=== PATIENT | male | born 1940 | race Caucasian/White ===

== ENCOUNTER → 2016-08-06 | Outpatient (CLI) | payer OTHER, MEDICARE ==
[~2016-08-06] MED LIST: ADVAIR 250-501 EACH INH; ADVAIR HFA 230M12 GM INH; AZITHROMYCIN 2250 MG PO; BREO ELLIPTA 21 EACH IH; CEFACLOR500 MG PO; CELEXA20 MG PO; DUONEB 2.5-0.5 M3 ML INH; ENOXAPARIN40 MG/0.1 SUBQ; HUMALOG100 UNIT/1 SUBQ; HYDROCODONE-APA1 TA1 PO; IRON325 PO; LANTUS SUBQ; LANTUS100 UNIT/M SUBQ; LEXAPRO 10 MG T10 M1 PO; LIPITOR10 MG PO; MIDODRINE HCL2.5 M1 PO; NOVOLIN N100 UNIT/1; NOVOLIN R100 UNIT/1; NOVOLOG FL100 UNIT/M SC; NOVOLOG100 UNIT/1 SUBQ; SIMVASTATIN40 MG PO; TYLENOL325 MG PO; [UNRECOGNIZED DRUG - OTHER] PO
== END ==
LOC: CAT 10:34
DX: J44.9 Chronic obstructive pulmonary disease, unspecified (principal); J84.10 Pulmonary fibrosis, unspecified; R91.1 Solitary pulmonary nodule

== ENCOUNTER → 2019-04-09 | Outpatient (CLI) | payer OTHER, MEDICARE | LOC: CAT 10:17 | DX: J43.9 Emphysema, unspecified (principal); K80.80 Other cholelithiasis without obstruction; I25.10 Atherosclerotic heart disease of native coronary artery without angina pectoris; R91.1 Solitary pulmonary nodule ==

== ENCOUNTER 2019-05-13 13:27 | Inpatient (IN) | payer OTHER, MEDICARE ==
[~2019-05-13] VITALS: Ht 185.4 cm; Wt 81.6 kg
[2019-05-13 13:28] VITALS: BP 103/66
[2019-05-13 13:59] LABS: ABSOLUTE NEUTROPHILS 9.4 thou/uL (1.4-8.2); BASOPHILS 0.9 % (0.0-2.0); EOSINOPHILS 2.7 % (0.0-3.0); HEMATOCRIT 38.6 % (42.0-52.0); HEMOGLOBIN 12.7 gm/dL (14.0-18.0); MCH 30.4 pg (26.0-34.0); MCHC 32.9 g/dL (28.0-37.0); MCV 92.3 fL (80.0-100.0); MONOCYTES 5.8 % (1.0-8.0); POLYS 72.6 % (36.0-66.0); RBC 4.18 mil/uL (4.50-6.00); RDW 13.9 % (10.5-14.5)
[2019-05-13 14:16] LABS: CALCIUM 8.8 mg/dL (8.5-10.1); CREATININE 0.8 mg/dL (0.7-1.3); POTASSIUM 4.1 mmol/L (3.5-5.1)
[2019-05-13 14:22] LABS: DIRECT BILIRUBIN 0.6 mg/dL (<0.1-0.2); TOTAL BILIRUBIN 1.1 mg/dL (<0.1-1.0); TOTAL PROTEIN 7.1 g/dL (6.4-8.2)
[2019-05-13 14:40] LABS: PLATELET COUNT 290 thou/uL (150-400)
[2019-05-13 14:57] LABS: URINE BILIRUBIN NEGATIVE (Negative); URINE BLOOD 3+ (Negative); URINE CLARITY CLEAR; URINE COLOR YELLOW; URINE GLUCOSE-RANDOM* TRACE (Negative); URINE KETONES NEGATIVE (Negative); URINE LEUKOCYTES-REFLEX NEGATIVE (Negative); URINE NITRITE-REFLEX NEGATIVE (Negative); URINE PROTEIN (DIPSTICK) TRACE (Negative); URINE SPECIFIC GRAVITY 1.025 (1.005-1.035)
[2019-05-13 15:00] LABS: D-DIMER 3.82 ug/mLFEU (0.19-0.50); INR 1.1; PROTIME 11.4 Seconds (9.3-11.4)
[2019-05-13 15:09] LABS: BACTERIA-REFLEX 1-9 Few /HPF (None Seen); SQUAMOUS None Seen /LPF (0-3); URINE RBC 3-10 Few /HPF (0-2); URINE WBC-REFLEX 0-5 Rare /HPF (0-5)
[2019-05-13 15:10] LABS: AMORPHOUS URATES Few /LPF (None Seen); CASTS None Seen /LPF (None Seen)
--- NOTE | 2019-05-13 16:43 | EKG ---
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: LESLIE : 1940 Requested By: Ana Velazco Order Number: [id number] MD: Mook Merino Measurements Intervals [place] Rate: 111 P: 77 TN: 162 QRS: 58 QRSD: 93 T: 6 QT: 359 QTc: 488 Interpretive Statements Sinus tachycardia Low voltage, extremity leads Borderline prolonged QT interval Compared to ECG 06/07/2016 23:07:48 No significant change was found Electronically Signed On 05-13-2019 16:42:30 HEAD HOST/HOSTESS by Mook Merino [email or web address] <ELECTRONICALLY SIGNED> By: Mook Merino MD, FAC 05/13/19 1642 1343 1343 Mook Merino MD, [facility] /EPI
--- NOTE | 2019-05-13 19:10 | NUR ---
REPORT GIVEN TO JAMES ZHAO
[2019-05-13 19:43] VITALS: BP 127/77
[2019-05-13] MEDS ORDERED: LANTUS SUBQ (19:48)
[2019-05-13 19:51] VITALS: BP 141/84
[2019-05-13 20:24] VITALS: BP 129/81
--- NOTE | 2019-05-14 04:46 | NUR ---
Pt admitted from ED @1999 via cartr accompanied by staff. Pt is alert to self,place,situation able to make needs known. Very hard of hearing,has no hearing aids. Oriented to the unit/room. Tiff contacted for admission assessment and indicated pt needs assistance with all ADLs for the last 4 years. And normally ambulates with a GB/RW at home with moderate assist. Pt transferred from cart via sliding device d/t back pain. Tylenol ordered for pt and he did verbalize relief. Pt is NPO for possible IR intervention,oral swabs provided PRN. Voiding per urinal;but per pt can be incontinent as well. SCDS applied. Uses oxygen at night at 2L/NC. Fall precautions in place. Resting quietly at this time w/o any distress noted. Will continue to monitor pt.
[2019-05-14 07:20] VITALS: BP 140/85
[2019-05-14 15:18] VITALS: BP 148/81
[2019-05-14 16:29] VITALS: BP 148/81
--- NOTE | 2019-05-14 17:10 | NUR ---
INITIAL ASSESSMENT: Received consult. SW reviewed chart and spoke with nursing and attending physician. Pt was admitted from home due to weakness/pneumonia/possible malignancy. Pt with hx of dementia. Attending physician discussed possible hospice eval. ALAYNA met with pt and at bedside. Introduced role of SW. Pt is alert to self. Pt and spouse live at home. Prior to admission, pt was using a walker. Pt has a w/c at home. Pt and have sons in the area, who are able to assist as needed. Pt has been to [facility] and [facility] in the past. Pt's states that her mother was on service with hospice in the past and she is familiar with hospice. Pt's states she would like an info visit, but does not think pt is ready for hospice yet. Video swallow to be done tomorrow. SW contacted maori liaison adviser, who will contact pt's to arrange info visit tomorrow. ALAYNA updated nursing and attending physician. ALAYNA is following to assist as needed with discharge planning.
[2019-05-14 21:35] VITALS: BP 144/94
--- NOTE | 2019-05-15 07:00 | NUR ---
Assumed pt care at 1900. Pt is A/OX3 but able to make needs known. GRINDSTONE w/o hearing aids. Pt VSS. called at beginning of shift and stated he had discussed with pt's regarding his condition and opted for pt to be a DNR with possible palliative care; he did order comfort meds for pts. Pt c/o back pain;medicated with morphine with relief reported. Pt became agigated and cursing at staff this morning asking for his car keys; not easily redictable medicated with Ativan and resting calmly at this time. IVF infusing via LFA w/o any problems voiced. Fall precautions in place,calls approp. Will continue to monitor pt.
[2019-05-15 08:00] VITALS: BP 156/84
--- NOTE | 2019-05-15 09:51 | NUR ---
ALAYNA notified by Hospice that info visit will be completed this afternoon around 1300. ALAYNA updated nursing and attending physician. ALAYNA is following to assist as needed with discharge planning.
--- NOTE | 2019-05-15 16:10 | NUR ---
ASSUMED CARE OF THE PATIENT AT 0715, PATIENT ALERT AND ORIENTED X 4. UP WITH ASSIST X 1. DURING REPORT, LEFT IV INFILTRATED, ASKED NIGHTNURSE/RAJESH/LICENSING SERVICES CLERK TO REMOVE THE IV., INCIDENT REPORT PUT IN PER RAJESH/LICENSING SERVICES CLERK, NURSE QUALITY CONTROL CHECKER/JOSE DANIEL NOTIFIED. IV TEAM NOTIFIED TO OBTAIN NEW IV, RIGHT FOREARM WITH NS AT 80CC/HR. DR WRIGHT HERE THIS AM, WILL DISCHARGE PATIENT TO HOME WITH SELF CARE. RIGHT FOREARM IV REMOVED PRIOR TO DISCHARGE. ALL DISCHARGE PAPERWORK AND ALL PERSONAL BELONGINGS SENT WITH THE PATIENT.
--- NOTE | 2019-05-15 16:55 | NUR ---
ASSUMED CARE OF PATIENT AT 0715, PATIENT ALERT AND ORIENTED X 3, UP WITH MAX ASSIST X 2. PATIENT UP TO THE CHAIR TODAY PER NURSING. PATIENT WENT DOWN FOR VIDEO SWALLOW, PER SPECCH/BRYANT FLUIDS CHANGED TO HONEY THICK LIQUIDS. C/O PAIN WITH BACK AREA THIS AFTERNOON, TYLENOL 650MG GIVEN FOR PAIN. O2 AT 2 LITERS/NC IN PLACE, SOB WITH ACTIVITY. LEFT FOREARM IV WITH 1/2 NS AT 100CC/HR. AT BEDSIDE MOST OF THE DAY. HOSPICE HERE TODAY FOR EVAL. POSSIBLE MALIGNANCY. WILL CONTINUE TO MONITOR.
[2019-05-15 19:24] VITALS: BP 120/81
--- NOTE | 2019-05-16 03:45 | NUR ---
PATIENT ALERT AND ORIENTED X3. VERY [place]. COOPERATIVE WITH CARE. IVF INFUSING W/O COMPLICATION. BS MONITORED PER ORDER. VOIDING PER URINAL. 02 PER NC AT 2L WITH NO SOA NOTED. REMAINED IN BED THROUGHOUT THE NIGHT. DENIES PAIN. RESTING QUIETLY.
[2019-05-16 07:40] VITALS: BP 149/93
[2019-05-16 15:50] VITALS: BP 141/88
--- NOTE | 2019-05-16 19:30 | NUR ---
ASSUMED CARE OF PATIENT AT 0715, PATIENT ALERT AND ORIENTED X 3. PATIENT C/O PAIN WITH BACK AREA, TYLENOL 650 MG PO GIVEN WITH GOOD RELIEF. 1/2 NS AT 100CC/HR. RECEIVED 1 IV ANTIBIOTIC THIS SHIFT. O2 AT 2 LITERS/NC, SOB WITH ACTIVITY. TANESHA/PT WORKED WITH THE PATIENT, UP TO THE RECLINER. FEEDER/HONEY THICK LIQUIDS. BLOOD SUGAR ELEVATED THIS SHIFT, AT LUNCH 412, THIS RN NOTIFIED DR MAZARIEGOS, NEW ORDERS FOR CHANGE IN S/S INSULIN. AND CHANGE IN LANTUS ORDER AT HS. WILL CONTINUE TO MONITOR.
[2019-05-16 20:06] VITALS: BP 152/71
--- NOTE | 2019-05-17 04:24 | NUR ---
PATIENT ALERT AND ORIENTED X3. IVF INFUSING W/O COMPLICATION. BS MONITORED PER ORDER. 2LNC THAT PATIENT TAKES OFF AND ON. GOOD RESULTS FROM MAG CITRATE GIVEN ON THE AM SHIFT. TWO LARGE, BROWN, LIQUID BM'S AT TIME OF NOTE. RESTING QUIETLY. WILL MONITOR.
[2019-05-17 07:11] VITALS: BP 141/77
--- NOTE | 2019-05-17 13:32 | NUR ---
ASSESSED AT START OF SHIFT PT A&OX3 MARY'S IGLOO W/O HEARING AIDS. IV INTACT AND FLUIDS INFUIDS. BED BATH GIVEN THIS MORNING. PT HAD 1 BM. PT CLEANED AND TRANSFERRED TO CHAIR. 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 PT JIAN BREAKFAST AND LUNCH WELL. TAKES PILLS WITH THICK LIQUIDS. DR MAZARIEGOS MET WITH PT THIS MORNING STATED PT SHOULD BE READY FOR D/C TOMORROW. INFORMED THAT PER REPORT FROM HOSPICE AND SON WILL BE AVAILABLE BY SATURDAY. DR MAZARIEGOS STATED TO PASS MESSAGE ON TO DAY NURSE AND ASSISTANT UNIT FORESTER TOMORROW AND HE WILL FF UP WITH THAT. GETS SCHEDULED BX. INSULIN GIVEN FOR BLOOD SUGAR MANAGEMENT. FALL PREC IN PLACE AND CALL LIGHT IN REACH WILL CONT TO MONITOR. CAME BY TO VISIT WITH PT THIS SHIFT STATED HIS ROOM IN THE HOUSE IS NOT YET READY AND SON IS COMING BY ON SATURDAY TO HELP SETTLE IN.
[2019-05-17 14:56] VITALS: BP 144/85
--- NOTE | 2019-05-17 19:05 | NUR ---
ASSUMED PT CARE AROUND 1500. AXOX3. VSS. NO S/S ACUTE DISTRESS NOTED OR REPORTED AT THIS TIME. CARE TRANSFERRED TO INCOMING RN AT THIS TIME.
[2019-05-17 19:22] VITALS: BP 144/88
--- NOTE | 2019-05-18 04:51 | NUR ---
PATIENT ALERT AND ORIENTED X2-3. COOPERATIVE WITH CARE. BS MONITORED PER ORDER. 2LNC IN PLACE WITH NO SOA NOTED. VOIDING PER URINAL WITH SOME INCONTINENCE. TOLERATING HONEY THICK LIQUIDS. RESTLESS AT TIMES, UNABLE TO USE THE CALL LIGHT AT TIMES. WILL MONITOR.
[2019-05-18 07:57] VITALS: BP 157/99
--- NOTE | 2019-05-18 13:07 | PATH ---
[facility] [place] [address] PATHOLOGY RPT PROCEDURE Name: TIMI HERNANDEZ Room #: 404-P ADM IN M.R.#: [id number] Admission: 05/13/19 Date of : 40 Discharge: Report #: [id number] Path Case #: [id number] Note [facility] Accession Number: [id number] TESTS RESULT FLAG UNITS REF RANGE LAB Clinician Provided Cytology Information No. 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 CELLULAR DEGENERATION IS PRESENT. THIS INTERPRETATION INCLUDES EVALUATION OF A CELL BLOCK. COMMENT, THE FINE NEEDLE ASPIRATION REVEALS EPITHELIAL CELLS IN SHEET ADMIXED WITH INFLAMMATORY CELLS. THE FINDINGS FAVOR A PAROTID NEOPLASM FAVOR A WARTHINS TUMOR. HOWEVER OTHER NEOPLASMS CANNOT BE ENTIRE EXCLUDED THE MATERIAL ASPIRATED MAY NOT BE HEM INSPECTOR. SUGGEST CLINICAL AND RADIOLOGICAL CORRELATION AND BIOPSY FOR CONFIRMATION. THIS CASE WAS ALSO REVIEWED BY ANOTHER PATHOLOGIST DR. SHELDON BRITTON WHO AGREED WITH THE ABOVE DIAGNOSIS. Signed out by: 02 Ricardo Stanley MD, Pathologist NPI- [id number] Performed by: 01 Annamarie Su, Plate Cleaner ([facility]) Gross description: 01 20ML, LIGHT PINK, 3FX 3AD CB /LCS 05/14/2019 1706 Local FLAG LEGEND: L-Low Normal,H-High Normal,LL-Alert Low,HH-Alert High <-Panic Low,>-Panic High,A-Abnormal,AA-Critical Abnormal Performed at: 01 [facility] [address] [place] [address] Karri Osorio MD, [address] [address] Grace Montiel MD, Specimen Comment: A courtesy copy of this report has been sent to [phone] Specimen Comment: Report sent to Specimen Comment: A duplicate report has been generated due to demographic [address] [address] PATHOLOGY RPT PROCEDURE Name: TIMI HERNANDEZ Room #: 404-P [facility] IN M.R.#: [id number] Admission: 05/13/19 Date of : 40 Discharge: Report #: [id number] Path Case #: [id number] updates. Performed at: 01 [facility] [place] [address] [place] [address] [address], [place], [place] [id number] MD Karri Osorio MD Phone: [phone]
[2019-05-18 16:56] VITALS: BP 144/91
--- NOTE | 2019-05-18 17:05 | NUR ---
ASSUMED CARE OF PATIENT AT 0715, PATIENT DENIES PAIN, C/O PAIN WITH BACK WITH ACTIVITY/MOVEMENT. PATIENT HAS LEFT FOREARM IV IN PLACE, IV FLUIDS DISCONTINUED AND IV ANTIBIOTICS. PATIENT IS A FEEDER, HONEY THICK LIQUIDS, SUPERVISION WITH MEALS. BLOOD SUGAR MONITORING ORDERED, INSULIN GIVEN PER S/S. SHIFT ASSESSMENT DONE. WILL CONTINUE TO MONITOR.
--- NOTE | 2019-05-18 17:21 | NUR ---
ALAYNA reviewed chart and spoke with nursing and attending physician. Pt is progressing towards goals for discharge. Pt's is now agreeable with pt going home with hospice. ALAYNA discussed with JAMES Rogel with Hospice, who states that they have a meeting at pt's home tomorrow at 1330, when pt's son arrives in town. ALAYNA met with pt's to discuss discharge plan. Pt's states that they will need to make room in their home to accommodate the DME. ALAYNA contacted health care liaison, who states that they have reached out to their respite facilities and they are not any beds available for pt. Discharge home is anticipated for tomorrow or Saturday. ALAYNA is following to assist as needed with discharge planning.
[2019-05-18 20:04] VITALS: BP 144/94
--- NOTE | 2019-05-19 05:36 | NUR ---
Assumed pt care at 1900. A/OX3,able to make needs known. VSS. Continent of bladder,voiding per urinal at NOC. C/o lower back pain,medicated with Tylenol with relief reported. Pt is very Hard of hearing with no hearing aids. Fall precautions in place,calls approp. Resting quietly w/o any distress noted, oxygen on @ 2L/NC. Will continue to monitor pt.
[2019-05-19 08:58] VITALS: BP 138/84
--- NOTE | 2019-05-19 13:52 | NUR ---
SW reviewed chart and spoke with nursing and attending physician. Pt's son arrived in town earlier today. Pt's and son will meet Hospice at home this afternoon. DME will be delivered later today or tomorrow. Plan is for pt to discharge home tomorrow with Hospice. ALAYNA is following to assist as needed with discharge planning.
[2019-05-19 16:57] VITALS: BP 138/84
--- NOTE | 2019-05-19 17:00 | NUR ---
PT IS AOX2-3, VSS, NO PAIN AT THIS TIME. PT DENIES N/V, TOLERATING DIET. PT TAKES PILLS WHOLE IN APPLESAUCE. PT IS INCONTINENT ON/OFF. PT HAS FALL PRECAUTIONS IN PLACE. CALL LIGHT/PERSONAL ITEMS IN REACH. WILL CONTINUE TO MONITOR.
[2019-05-19 20:01] VITALS: BP 128/81
--- NOTE | 2019-05-20 04:13 | NUR ---
Assumed pt care at 1900. A/OX3,ST. MICHAEL IRA but able to make needs known. Denies pain on assessment even though noted grimacing with movement.Declined to be repositioned every 2 hrs. Voiding per urinal w/o problems. Fall precautions in place,frequent checks done on pt. Resting quietly eyes closed at this time,oxygen in place at 2L/NC. Will continue to monitor pt.
--- NOTE | 2019-05-20 07:05 | NUR ---
Nutrition: Pt due for 7 day LOS this date. Per chart review, pt will be discharging home today with Hospice. Nutrition assessment no longer deemed appropriate given goals of care.
[2019-05-20 08:55] VITALS: BP 126/80
[2019-05-20 12:06] VITALS: BP 126/80
--- NOTE | 2019-05-20 12:11 | NUR ---
PT IS AOX3, VSS, NO C/O PAIN AT THIS TIME. PT IS CURRENTLY IN RECLINER FOR COMFORT, TOLERATING DIET, AND MEDICATION. FALL PRECAUTIONS IN PLACE. PT WILL DISCHARGE HOME WITH HOSPICE TODAY. WILL TRANSPORT HOME IN CAR. CALL LIGHT IN REACH. WILL CONITNUE TO MONITOR.
[2019-05-20] MEDS ORDERED: AUGMENTIN400 MG/53 PO (14:22)
[2019-05-20] MEDS ORDERED: LORAZEPAM I2 MG/1 M2 SUBLING (14:24)
[2019-05-20] MEDS ORDERED: LANTUS SUBQ (14:24)
[2019-05-20] MEDS ORDERED: MSL20MG/ML SUBLING (14:25)
--- NOTE | 2019-05-20 14:35 | NUR ---
DISCHARGE NOTE: ALAYNA reviewed chart and spoke with nursing and attending physician. Pt is stable for discharge home today with Hospice. ALAYNA spoke with Pebbles at [facility], who confirms that DME will be delivered to pt's home this morning between [id number]. ALAYNA requested speech therapy meet with pt's per her request to discuss recommendation for diet. ALAYNA met with pt and at bedside to discuss discharge plan. Confirmed DME is in place. Pt's had questions about possible SNF or LTC placement in the future if needed. ALAYNA explained that pt has 30 days from day of discharge to admit into a SNF using his Medicare benefit. ALAYNA explained that the hospice SW can assist with placement if needed. Pt's verbalized understanding. Ambulance to be scheduled between [id number] per [place]. Discharge orders to be faxed to Hospice when available. ALAYNA notified veneer gluer of transportation time. No further SW needs identified at this time, but is available to assist should needs arise.
[2019-05-20 17:09] VITALS: BP 122/70
[2019-05-21] MEDS ORDERED: AUGMENTIN400 MG/53 PO ×2 (08:28→08:29)
== END 2019-05-20 16:40 | disposition hospice, home (50) | DRG 180 ==
LOC: ER 13:27 → 4N 17:54 → EROBS 17:54 → 4N 19:54
PROVIDERS: Emergency Medicine Emergency Medical Services; ADMIT Internal Medicine
PROC: 0CBJ3ZX Excision of Minor Salivary Gland, Percutaneous Approach, Diagnostic (ICD-10-PCS; principal; 2019-05-14)
DX: C34.90 Malignant neoplasm of unspecified part of unspecified bronchus or lung (principal); J18.9 Pneumonia, unspecified organism; G93.40 Encephalopathy, unspecified; M48.54XA Collapsed vertebra, not elsewhere classified, thoracic region, initial encounter for fracture; J43.9 Emphysema, unspecified; E10.9 Type 1 diabetes mellitus without complications; G62.9 Polyneuropathy, unspecified; E78.00 Pure hypercholesterolemia, unspecified; M06.9 Rheumatoid arthritis, unspecified; F03.90 Unspecified dementia, unspecified severity, without behavioral disturbance, psychotic disturbance, mood disturbance, and anxiety; F32.9 Major depressive disorder, single episode, unspecified; M54.9 Dorsalgia, unspecified; D11.0 Benign neoplasm of parotid gland; E78.5 Hyperlipidemia, unspecified; Z51.5 Encounter for palliative care; F17.210 Nicotine dependence, cigarettes, uncomplicated; Z66 Do not resuscitate; G47.00 Insomnia, unspecified; Z79.4 Long term (current) use of insulin; Z79.899 Other long term (current) drug therapy; Z90.89 Acquired absence of other organs; Z83.6 Family history of other diseases of the respiratory system
CPT/HCPCS: 10091; 10790